=== PATIENT | female | born 2000 | race Hispanic/Latino ===

== ENCOUNTER 2021-12-09 08:43 | Emergency (ER) | payer SELFPAY ==
[~2021-12-09] VITALS: Ht 152.4 cm; Wt 52.2 kg
[2021-12-09 08:48] VITALS: BP 133/87
[2021-12-09 09:00] VITALS: BP 122/70
[2021-12-09 09:30] VITALS: BP 104/59
[2021-12-09 09:32] LABS: HEMATOCRIT 42.5 % (37.0-47.0); HEMOGLOBIN 14.3 g/dl (12.0-16.0); IMMATURE GRANULOCYTES 0.2 % (0.0-5.0); MEAN CELL VOLUME 89.5 fL CALC (80.0-100.0); MEAN CORPUSCULAR HGB 30.1 pG CALC (26.0-32.0); MEAN CORPUSCULAR HGB CONC 33.6 g/dL CAL (32.0-36.0); NEUT# 4.52 thou/uL (2.00-7.15); RED BLOOD COUNT 4.75 mill/uL (4.20-5.60); RED CELL DISTRI WIDTH 12.7 % (11.5-15.5)
[2021-12-09 09:46] LABS: ALBUMIN 4.4 g/dL (3.2-5.0); ALKALINE PHOSPHATASE 81 u/l (38-126); ANION GAP 12 (6-22 (CALC)); BILIRUBIN, TOTAL 0.4 mg/dL (0.0-1.4); BUN 9 mg/dL (7-17); BUN/CREATININE RATIO 16 (12-20 (CALC)); CARBON DIOXIDE 23 mmol/l (22-30); CHLORIDE 107 mmol/l (95-108); CREATININE 0.6 mg/dL (0.5-1.0); GFR FOR AFR.AMER. > 60 ML/MIN (>=60 (CALC)); GFR OTHER RACES > 60 ML/MIN (>=60 (CALC)); LIPASE 45 u/l (23-300); POTASSIUM 3.7 mmol/l (3.5-5.1); SGOT/AST 35 u/l (14-36); SODIUM 139 mmol/l (137-146); TOTAL PROTEIN 7.9 g/dL (6.3-8.2)
[2021-12-09 10:00] VITALS: BP 121/79
[2021-12-09 10:30] VITALS: BP 102/61
[2021-12-09 11:00] VITALS: BP 102/64
== END 2021-12-09 11:26 | disposition home or self-care (01) | DRG 313 ==
LOC: ED 08:43
PROVIDERS: Family Medicine
DX: R07.9 Chest pain, unspecified (principal)

== ENCOUNTER 2021-12-13 18:38 | Emergency (ER) | payer SELFPAY ==
[~2021-12-13] VITALS: Ht 152.4 cm; Wt 59.0 kg
[2021-12-13 18:44] VITALS: BP 122/83
[2021-12-13] MEDS ORDERED: PROTONIX20 M1 PO (18:50)
[2021-12-13 19:01] VITALS: BP 106/66
[2021-12-13 19:42] LABS: HEMATOCRIT 38.3 % (37.0-47.0); HEMOGLOBIN 13.6 g/dl (12.0-16.0); IMMATURE GRANULOCYTES 0.1 % (0.0-5.0); MEAN CELL VOLUME 86.8 fL CALC (80.0-100.0); MEAN CORPUSCULAR HGB 30.8 pG CALC (26.0-32.0); MEAN CORPUSCULAR HGB CONC 35.5 g/dL CAL (32.0-36.0); NEUT# 6.05 thou/uL (2.00-7.15); RED BLOOD COUNT 4.41 mill/uL (4.20-5.60); RED CELL DISTRI WIDTH 12.5 % (11.5-15.5)
[2021-12-13 19:57] LABS: ACT PARTIAL THROMBO TIME 26.2 SECONDS (20.0-32.5); INTERNATIONAL NORMALIZED RATIO 1.1 RATIO (0.7-1.3)
[2021-12-13 20:00] VITALS: BP 108/68
[2021-12-13 20:09] LABS: D-DIMER 0.17 mg/L (0.19-0.60)
[2021-12-13 20:12] LABS: MYOGLOBIN 19 ng/mL (0 - 62)
[2021-12-13 20:30] VITALS: BP 120/74
[2021-12-13 20:33] LABS: ALBUMIN 4.4 g/dL (3.2-5.0); ALKALINE PHOSPHATASE 83 u/l (38-126); ANION GAP 14 (6-22 (CALC)); BILIRUBIN, TOTAL 0.3 mg/dL (0.0-1.4); BUN 6 mg/dL (7-17); BUN/CREATININE RATIO 10 (12-20 (CALC)); CARBON DIOXIDE 24 mmol/l (22-30); CHLORIDE 106 mmol/l (95-108); CREATININE 0.6 mg/dL (0.5-1.0); GFR FOR AFR.AMER. > 60 ML/MIN (>=60 (CALC)); GFR OTHER RACES > 60 ML/MIN (>=60 (CALC)); POTASSIUM 3.7 mmol/l (3.5-5.1); SGOT/AST 23 u/l (14-36); SODIUM 139 mmol/l (137-146); TOTAL PROTEIN 7.4 g/dL (6.3-8.2)
[2021-12-13] MEDS ORDERED: TORADOL PO (20:46)
[2021-12-13] MEDS ORDERED: PROTONIX40 M2 PO (20:46)
[2021-12-13 21:00] VITALS: BP 120/74
== END 2021-12-13 21:05 | disposition home or self-care (01) | DRG 313 ==
LOC: ED 18:38
PROVIDERS: Family Medicine
DX: R07.9 Chest pain, unspecified (principal); K21.9 Gastro-esophageal reflux disease without esophagitis